=== PATIENT | male | born 1970 | race Caucasian/White ===

== ENCOUNTER 2023-07-17 20:09 | Inpatient (IN) | payer MEDICAID, SELFPAY ==
[2023-07-17 20:10] VITALS: BP 137/87; PULSE 88; RESP 16; TEMP 36.4; O2SAT 95; BMI 30.7
[2023-07-17 20:13] VITALS: BP 137/87; PULSE 89; RESP 16; TEMP 36.4; O2SAT 94
--- NOTE | 2023-07-17 21:56 | CT_ITS ---
We are attempting to reach an attending provider to discuss findings. An addendum with communication details will be sent when the communication is complete. STUDY: CT ABDOMEN AND PELVIS WITH CONTRAST - URINARY TRACT REASON FOR EXAM: Male, 53 years old. ventral hernia, sv pain, nausea RADIATION DOSAGE (If Supplied By Facility): CTDIvol = ( 22.03 ) mGy, DLP = ( 1307.83 ) mGycm TECHNIQUE: IV 100mL Isovue-370 was administered. Transaxial images were obtained from the dome of the diaphragm to the symphysis pubis in the arterial, nephrographic and excretory phases. Multiplanar coronal and sagittal images were reformatted. The protocol utilizes one or more of the following dose reduction techniques: automated exposure control, adjustment of mA and/or kV according to patient size,and/or use of iterative reconstruction technique. COMPARISON: No relevant prior comparison study available FINDINGS: The visualized lung bases are unremarkable. The visualized portions of the heart are within normal limits. Normal liver. There is a solitary gallstone. Normal spleen. Normal pancreas. Normal bilateral adrenal glands. Normal visualized stomach. There are dilated loops of the small intestine with transition at the umbilical hernia and a non-distended colon consistent with a small bowel obstruction. Normal colon. The appendix is visualized and appears normal. Normal abdominal aorta. No retroperitoneal adenopathy. Bilateral kidney stones, the largest measures 5 mm. There is no hydronephrosis. Bilateral renal cysts, the largest measures 3.2 cm . Normal urinary bladder. 14 cm umbilical hernia that is probably incarcerated containing small bowel loops. Normal osseous structures. CT/Abdomen/Pelvis W IV Cont ONLY IMPRESSION: 14 cm umbilical hernia that is probably incarcerated containing small bowel loops. There are dilated loops of the small intestine with transition at the umbilical hernia and a non-distended colon consistent with a small bowel Electronically Signed: Sho Rincon MD at 23:39 EDT ,
--- NOTE | 2023-07-17 21:57 | ED.VIS.GI ---
HPI HPI - GI History of Present Illness Chief Complaint: Abd Pain Informant: patient Abdominal Pain/Flank Pain Onset: Hours (5-6) Context: Sudden Onset (Getting up from sitting position) Timing: Continuous Quality: Aching Location: - (Periumbilical area, site of known ventral hernia) Current Severity: Severe Maximum Severity: Severe Worsened by: Car ride Relieved by: Nothing Nausea/Vomiting/Emesis GI Symptom: Positive for Nausea; Negative for Vomiting Diarrhea/Melena/Hematochezia GI Symptom: Negative for Diarrhea, Melena or Hematochezia Associated Symptoms Associated Symptoms: Negative for Dysuria, Frequency or Hematuria Narrative Narrative: 53-year-old male states he has known about large ventral hernia for about a year or so, has an appointment with his surgeon here tomorrow, but today the pain in this area became severely worse. He states that he has done this in the past but not very often. It started today after he got up. He has been nauseated since but no vomiting. Has not had a bowel movement, feels like he needs to do but cannot. Feels bloated as well. The bloating is making his abdomen distended and making it hard to take a breath although he denies any chest symptoms other than that. No problems urinating. History of appendectomy no other abdominal surgeries. [facility] Medical History (Updated 07/17/23 @ 23:[address] Yoan Liang MD) Substance abuse Chronic hepatitis C HTN (hypertension) GERD (gastroesophageal reflux disease) Home Medications ?Medication ?Instructions ?Recorded ?Last Taken ?Type NK 07/17/23 Unknown History Allergy/AdvReac Type Severity Reaction Status Date / Time No Known Allergies Allergy Verified 07/17/23 20:13 Surgical History (Updated 07/17/23 @ 22:[address] Yoan Liang MD) History of foot surgery History of appendectomy Social History Smoking Status: Current every day smoker tobacco type: cigarettes ROS ROS ED Constitutional Constitutional ED: Denies chills or fever(s) Eyes Eyes: Denies change in vision or diplopia ENT ENT ED: Denies rhinorrhea or sore throat Cardiovascular Cardiovascular: Denies chest pain or palpitations Respiratory/Chest Respiratory/Chest: Denies cough or dyspnea Gastrointestinal Gastrointestinal: Reports abdominal pain and nausea; Denies diarrhea or vomiting Genitourinary Genitourinary ED: Denies dysuria or hematuria Musculoskeletal Musculoskeletal: Denies back pain or neck pain Integumentary Denies abscess or rash Neurologic Neurologic: Denies headache(s), paresthesias or weakness Psychiatric Psychiatric: Denies anxiety or suicidal thoughts EXAM Physical Exam Const Vital Signs: 07/17/23 20:10 07/17/23 20:13 07/18/23 00:00 Temperature 97.6 F L 97.6 F L Temperature Source Temporal Temporal Pulse Rate 88 89 86 Respiratory Rate 16 16 16 Blood Pressure 137/87 H 137/87 H 120/77 Blood Pressure Mean 103 103 91 Pulse Ox 95 94 90 Oxygen Delivery Method Room Air Room Air Room Air 07/18/23 00:40 Temperature 98.1 F Temperature Source Pulse Rate 86 Respiratory Rate 16 Blood Pressure 120/77 Blood Pressure Mean 91 Pulse Ox 90 Oxygen Delivery Method Positive well nourished and well developed General Appearance ED: well developed and NAD HEENT Reports moist mucous membranes normocephalic and atraumatic Eyes PERRL and EOMs intact bilaterally Neck full ROM and supple Resp normal respiratory effort and clear to auscultation bilaterally Cardio regular rate, regular rhythm and no murmurs GI GI Narrative: Normal bowel sounds present but hypoactive. Tender periumbilical area, palpable hernia, large ventral umbilical not able to reduce but it feels soft and not firm. There is rebound tenderness remotely. The rest of the abdomen is soft and benign. Couple scabbed sores in the periumbilical area but no overt erythema or other discoloration of the skin overlying the tender areas. Auscultation: hypoactive bowel sounds Palpation: soft Back/Spine no CVA tenderness General Back: other FROM Extremity normal to inspection General Extremety ED: Negative for edema, pulses abnormal or tenderness General Extremity: Negative for edema or pulses abnormal Neuro oriented x3, CN's II-XII intact bilaterally and no sensory deficits noted Sensorium / Orientation: awake and alert Motor Exam: strength 5/5 throughout Skin no rashes or lesions noted and no wounds MDM MDM MDM Narrative Medical decision making narrative: Patient is quite tender and has some rebound tenderness throughout his abdomen, concern is for incarcerated hernia. CT with IV contrast obtained, I reviewed the images and the result which I agree with, it is consistent with small bowel obstruction due to an incarcerated ventral hernia. His lactate is within normal limits, arguing against necrosis. There is no bowel wall air seen. He has a mild leukocytosis and the rest of his labs are noted. He was initially given IV fluids, morphine, Zofran, it really has not helped very much. Discussed with Dr. Coats with surgery. NG tube requested, but later decided to hold off. Lab Data Attestation: I reviewed the patient's lab results. Labs: Laboratory Results - last 24 hr 07/17/23 22:25 WBC 11.6 H RBC 5.13 Hgb 15.0 Hct 47.5 MCV 92.6 MCH 29.2 MCHC 31.6 L RDW Std Deviation 47.9 H RDW Coeff of Nuno 14.2 Plt Count 396 MPV 9.4 Immature Gran % (Auto) 0.300 Neut % (Auto) 79.8 H Lymph % (Auto) 13.5 L [place] % (Auto) 5.5 Eos % (Auto) 0.6 Baso % (Auto) 0.3 Absolute Neuts (auto) 9.2 H Absolute Lymphs (auto) 1.56 Nucleated RBC % 0 Sodium 134 L Potassium 4.1 Chloride 103 Carbon Dioxide 25.0 Anion Gap 6 BUN 8 Creatinine 0.97 Estim Creat Clear Calc 106.00 Est GFR (MDRD) Af Amer 105 Est GFR (MDRD) Non-Af 86 BUN/Creatinine Ratio 8.3 L Glucose 125 H Lactic Acid 0.9 Calcium 9.6 Radiography Diagnostic Testing: Clinical Impression(s) from Imaging Studies Abdomen/Pelvis CT 07/17/23 21:56 IMPRESSION: 14 cm umbilical hernia that is probably incarcerated containing small bowel loops. There are dilated loops of the small intestine with transition at the umbilical hernia and a non-distended colon consistent with a small bowel Electronically Signed: Sho Rincon MD at 23:39 EDT , ADDENDUM: 07/17/23 [id number] IMPRESSION: 14 cm umbilical hernia that is probably incarcerated containing small bowel loops. There are dilated loops of the small intestine with transition at the umbilical hernia and a non-distended colon consistent with a small bowel N.B. : The above Results were Read Back by Sho Rincon MD to Yoan Liang MD, and understanding confirmed on 07/17/2023 23:46:58 (ET). Electronically Signed: Sho Rincon MD at 23:39 EDT , Management Discussion w/another healthcare provider: Drying Machine Tender ([facility] surgery) and Radiologist Discharge Plan Dx/Rx/DC Orders Clinical Impression: Umbilical hernia with obstruction Disposition Disposition: Acute Care Hospital [facility] Discharge Date/Time: 07/18/23 01:11
[2023-07-17] MEDS: Morphine 4 MG/ML Syringe IV (22:24)
[2023-07-17] MEDS: Ondansetron 4 MG/2 ML Vial IV (22:24)
[2023-07-17] MEDS: 0.9% Normal Saline (1000mL) 1,000 ML 999 ML IV (22:24)
[2023-07-17 22:36] LABS: Absolute Lymphocyte Count 1.56 X10^3/uL (0.83-4.51); Absolute Neutrophil Count 9.2 X10^3/uL (2.0-7.7); Basophil# 0.03 X10^3/uL; Basophil% 0.3 % (0-1); Eosinophil# 0.07 X10^3/uL; Eosinophils% 0.6 % (0-5); Hematocrit 47.5 % (40-54); Lymphocyte # 1.56 X10^3/ul (0.83-4.51); Lymphocyte % 13.5 % (19-41); Mean Corp Hgb Conc 31.6 g/dL (32-36); Mean Corpuscular Hgb 29.2 pg (27.0-32.0); Mean Corpuscular Volume 92.6 fL (80-94); Mean Platelet Vol. 9.4 fl (6.2-12.0); Monocyte# 0.64 X10^3/uL; Monocyte% 5.5 % (0-10); NRBC Flagged by Analyzer 0 % (0-5); Neutrophil # 9.24 X10^3/uL (2.7-7.7); Neutrophil % 79.8 % (47-70); Platelet Count 396 K/mm3 (150-450); RBC Distribution Width CV 14.2 % (11.6-14.6); RBC Distribution Width SD 47.9 fl (35.1-43.9); Red Blood Count 5.13 M/mm3 (4.6-6.2); White Blood Count 11.6 K/mm3 (4.4-11.0)
[2023-07-17 22:46] LABS: Anion Gap 6 (5-15); BUN 8 mg/dL (7-18); BUN/Creat Ratio 8.3 RATIO (10-20); Calcium,Total 9.6 mg/dL (8.5-10.1); Chloride 103 mmol/L (98-107); Creatinine, Serum 0.97 mg/dL (0.70-1.30); EST Glomerular Filtration Rate 86 mL/min (>60); Est Glom Filt Rate - Afr Amer 105 mL/min (>60); Glucose 125 mg/dL (74-106); Potassium 4.1 mmol/L (3.5-5.1); Sodium Level 134 mmol/L (136-145)
[2023-07-17 23:20] LABS: Lactic Acid 0.9 mmol/L (0.4-1.9)
[2023-07-18] VITALS (15 sets, daily range): BP systolic 106–146; BP diastolic 64–86; PULSE 65–86; RESP 16–18; TEMP 36–36.9; O2SAT 90–98; BMI 33.3
[2023-07-18] MEDS: Morphine 4 MG/ML Syringe IV (00:26)
--- NOTE | 2023-07-18 01:00 | PCM.HP.STD ---
HPI - General General Date of Admission: 07/18/23 HPI Narrative LAMONT IJMENEZ, is a 53 M who presents to [facility] with acute exacerbation of umbilical hernia?related discomfort beginning approximately 3 PM this afternoon. He shares that he was assisting his daughter with a plumbing project and repeatedly tried to tighten a connection when he felt sudden onset abdominal discomfort and some nausea with hardening of the hernia area. He is known to me from a initial evaluation of this hernia in May 2022. We had tentatively plan to proceed with a hernia repair following double endoscopy when patient was incarcerated. He was recently laid out and seen in our clinic on 06/27/2023 to reestablish following. At that time he was set up for a CT scan of the abdomen pelvis that was actually due for later today. Patient's ED evaluation notable for leukocytosis of 11.6 with left shift. Lactic acid level was obtained and was within normal limits. CT imaging of the abdomen pelvis was obtained and showed evidence of multiple small bowel loops within patient's umbilical hernia and signs of a transition point related to a small bowel obstruction. Radiology read this as concerning for incarcerated umbilical hernia with small bowel obstruction. Patient's past surgical history is inclusive for laparoscopic appendectomy. [facility] Medical History (Updated 07/17/23 @ 23:[address] Yoan Liang MD) Substance abuse Chronic hepatitis C HTN (hypertension) GERD (gastroesophageal reflux disease) Home Medications ?Medication ?Instructions ?Recorded ?Last Taken ?Type NK 07/17/23 Unknown History Allergy/AdvReac Type Severity Reaction Status Date / Time No Known Allergies Allergy Verified 07/17/23 20:13 Surgical History (Updated 07/17/23 @ 22:[address] Yoan Liang MD) History of foot surgery History of appendectomy Social History Smoking Status: Current every day smoker tobacco type: cigarettes ROS Gastrointestinal Gastrointestinal: Reports abdominal pain, dyspepsia and nausea Genitourinary Genitourinary: Reports oliguria Vital Signs Vital Signs Vital Signs: 07/17/23 20:10 07/17/23 20:13 Temperature 97.6 F L 97.6 F L Temperature Source Temporal Temporal Pulse Rate 88 89 Respiratory Rate 16 16 Blood Pressure 137/87 H 137/87 H Blood Pressure Mean 103 103 Pulse Ox 95 94 Oxygen Delivery Method Room Air Room Air Weight Weight: 220 lb Body Mass Index (BMI) 30.7 Physical Exam Const alert and oriented x3 Constitutional Narrative: Patient in mild distress from discomfort and nausea/heartburn Resp normal respiratory effort GI GI Narrative: Mildly distended, protuberant hernia contents are soft with palpation but tender, improved appearance of superficial periumbilical wound primarily to the left of the umbilicus, no distinct color change to the overlying skin, remainder the abdomen is soft Results Lab / Micro Data 07/17/23 22:25 07/17/23 22:25 Labs: Laboratory Results - last 24 hr 07/17/23 22:25: WBC 11.6 H, RBC 5.13, Hgb 15.0, Hct 47.5, MCV 92.6, MCH 29.2, MCHC 31.6 L, RDW Std Deviation 47.9 H, RDW Coeff of Nuno 14.2, Plt Count 396, MPV 9.4, Immature Gran % (Auto) 0.300, Neut % (Auto) 79.8 H, Lymph % (Auto) 13.5 L, [place] % (Auto) 5.5, Eos % (Auto) 0.6, Baso % (Auto) 0.3, Absolute Neuts (auto) 9.2 H, Absolute Lymphs (auto) 1.56, Nucleated RBC % 0, Sodium 134 L, Potassium 4.1, Chloride 103, Carbon Dioxide 25.0, Anion Gap 6, BUN 8, Creatinine 0.97, Estim Creat Clear Calc 106.00, Est GFR (MDRD) Af Amer 105, Est GFR (MDRD) Non-Af 86, BUN/Creatinine Ratio 8.3 L, Glucose 125 H, Lactic Acid 0.9, Calcium 9.6 Imaging Radiology Impression Abdomen/Pelvis CT 07/17/23 21:56 IMPRESSION: 14 cm umbilical hernia that is probably incarcerated containing small bowel loops. There are dilated loops of the small intestine with transition at the umbilical hernia and a non-distended colon consistent with a small bowel Electronically Signed: Sho Rincon MD at 23:39 EDT , ADDENDUM: 07/17/23 [id number] IMPRESSION: 14 cm umbilical hernia that is probably incarcerated containing small bowel loops. There are dilated loops of the small intestine with transition at the umbilical hernia and a non-distended colon consistent with a small bowel N.B. : The above Results were Read Back by Sho Rincon MD to Yoan Liang MD, and understanding confirmed on 07/17/2023 23:46:58 (ET). Electronically Signed: Sho Rincon MD at 23:39 EDT Reading Location ID and State: [facility] / [place] Tel , Service support , Assessment & Plan Assessment/Plan (1) Umbilical hernia with obstruction: PLAN: Patient is a 53-year-old male, known to me from prior consultation visits for this hernia dating back to May 2022, who presents for emergent evaluation given acute exacerbation of his hernia?related pain as well as some obstructive symptomology. Indeed, ER workup is consistent with a diagnosis of incarcerated umbilical hernia and small bowel obstruction with transition point within the hernia sac. On exam I found evidence of an incarcerated umbilical hernia but no evidence of bowel strangulation and was reassured by patient's normal lactic acid as well as soft hernia contents. Thus, patient was counseled that we would attempt bedside reduction of his hernia in the name of trying to alleviate his obstruction and need for emergent OR?thereby hopefully making it possible that he would be a candidate for a laparoscopic assisted approach to his umbilical hernia repair with mesh placement. Patient acknowledged understanding and an extended attempt at reduction was made. Ultimately this attempt was successful in complete reduction of the hernia contents to the peritoneum and I was able to palpate the fascial defect. Patient confirmed that he felt symptomatically improved but did complain of some persistent heartburn symptoms. But this successful reduction plan to admit patient to the floor with n.p.o. status and monitor for signs of return of bowel function. Also repeat his laboratories. It is my hope that this will allow his bowel to return to more normal caliber and allow us to establish some working room to make a laparoscopic?assisted approach a viable option for Mr. Ross. Ultimately I would like to plan for laparoscopic investigation of his bowel with possible open closure of his hernia defect followed by laparoscopic placement of mesh. Patient should be consented appropriately and he has been added to the operating room schedule for later today. ? Continue n.p.o. status ? IV PPI ? IV pain medication and antiemetics ? Consent patient for hybrid approach to umbilical hernia repair with mesh Charges/Coding Visit Charges Inpatient E&M: 09784 Init Hosp L2
--- NOTE | 2023-07-18 01:12 | ED.RN ---
Per Dr Coats- cancel NG insertion due to risk of patient retching and hernia coming back out.
[2023-07-18] MEDS: 0.9% Normal Saline (1000mL) 1,000 ML 125 ML IV ×3 (01:45→20:20)
[2023-07-18] MEDS: HYDROmorphone 0.5 MG/0.5 ML SYRINGE IV ×3 (01:51→20:49)
--- NOTE | 2023-07-18 05:55 | EKG12_ITS ---
Test Reason : PRE-OP Blood Pressure : / mmHG Vent. Rate : 076 BPM Atrial Rate : 076 BPM P-R Int : 168 ms QRS Dur : 088 ms QT Int : 406 ms P-R-T Axes : 032 041 048 degrees QTc Int : 456 ms Normal sinus rhythm Normal ECG No previous ECGs available Confirmed by Alexander Huitron ([id number]), international editorial producer CAROLINE ZIEGLER ([id number]) on 07/18/2023 10:21:30 AM Referred By: Confirmed By:Alexander Huitron
[2023-07-18 06:42] LABS: Absolute Lymphocyte Count 1.81 X10^3/uL (0.83-4.51); Absolute Neutrophil Count 6.2 X10^3/uL (2.0-7.7); Basophil# 0.02 X10^3/uL; Basophil% 0.2 % (0-1); Eosinophils% 2.3 % (0-5); Hematocrit 39.9 % (40-54); Hemoglobin 12.5 g/dL (13.0-16.5); Lymphocyte # 1.81 X10^3/ul (0.83-4.51); Lymphocyte % 20.5 % (19-41); Mean Corp Hgb Conc 31.3 g/dL (32-36); Mean Corpuscular Hgb 29.3 pg (27.0-32.0); Mean Corpuscular Volume 93.7 fL (80-94); Mean Platelet Vol. 9.4 fl (6.2-12.0); Monocyte# 0.57 X10^3/uL; Monocyte% 6.5 % (0-10); NRBC Flagged by Analyzer 0 % (0-5); Neutrophil # 6.19 X10^3/uL (2.7-7.7); Neutrophil % 70.2 % (47-70); Platelet Count 310 K/mm3 (150-450); RBC Distribution Width CV 14.4 % (11.6-14.6); RBC Distribution Width SD 49.2 fl (35.1-43.9); Red Blood Count 4.26 M/mm3 (4.6-6.2); White Blood Count 8.8 K/mm3 (4.4-11.0)
--- NOTE | 2023-07-18 07:00 | RAD_ITS ---
STUDY: CT ABDOMEN AND PELVIS WITH CONTRAST REASON FOR EXAM: Male, 53 years old. Umbilical hernia repair. Prior appendectomy. RADIATION DOSAGE (If Supplied By Facility): CTDIvol = ( 16.67 ) mGy, DLP = ( 1358.60 ) mGycm TECHNIQUE: Transaxial images were obtained from the dome of the diaphragm to the symphysis pubis without oral contrast. IV 100mL Isovue-300 was administered. Sagittal and coronal images were reconstructed. Individualized dose optimization techniques were used for this CT. COMPARISON: Comparison is made with prior study dated July 17, 2023. FINDINGS: Stable appearance of the lung bases suggestive of scarring with areas of linear density and groundglass appearance. Coronary artery calcification. Normal liver. The gallbladder is contracted. There is a 2 cm solitary gallstone in the gallbladder lumen. There are multiple benign calcified granulomata of the spleen. Normal pancreas. Normal bilateral adrenal glands. Stable 3.4 cm right renal cyst. Stable nonobstructive bilateral intrarenal calculi. Normal visualized stomach. Normal small intestine. Normal colon. The appendix is visualized and appears normal. There is scattered atherosclerotic calcification of the abdominal aorta, without a demonstrated aneurysm. Normal inferior vena cava. Normal retroperitoneum. Normal urinary bladder. There is evidence of a soft tissue changes deep to the umbilicus in keeping with postoperative scarring following umbilical hernia repair. No evidence of recurrent hernia. There are degenerative changes of the visualized lumbar spine. RAD/Abdomen Single View (Portable) IMPRESSION: Status post umbilical hernia repair with postoperative scarring. The remainder of the examination is unchanged. Small bilateral nonobstructive intrarenal calculi and right renal cyst. Solitary gallstone. Electronically Signed: Genaro Blunt MD at 8:42 EDT ,
[2023-07-18 07:08] LABS: Lactic Acid 0.7 mmol/L (0.4-1.9)
[2023-07-18 07:09] LABS: Anion Gap 6 (5-15); BUN 7 mg/dL (7-18); BUN/Creat Ratio 9.7 RATIO (10-20); Calcium,Total 8.4 mg/dL (8.5-10.1); Chloride 108 mmol/L (98-107); Creatinine, Serum 0.72 mg/dL (0.70-1.30); EST Glomerular Filtration Rate 122 mL/min (>60); Est Glom Filt Rate - Afr Amer 147 mL/min (>60); Estimated Creatinine Clearance 148.73 ml/min; Glucose 130 mg/dL (74-106); Magnesium 2.1 mg/dL (1.6-2.6); Phosphorus 3.2 mg/dL (2.5-4.9); Potassium 3.8 mmol/L (3.5-5.1); Sodium Level 137 mmol/L (136-145)
--- NOTE | 2023-07-18 07:58 | PCM.PN.SRG ---
Subjective Subjective Patient seen and examined during AM rounds. He reports that he is feeling overall better from an abdominal standpoint and yet not back to normal. He does report an improvement in his acid reflux symptoms as well. He denies any bowel movements. He also denies any urination since his admission. Objective Data Objective Data Vital Signs: Vital Signs Temp Pulse Resp BP Pulse Ox O2 Del Method O2 Flow Rate 96.8 F L 78 16 124/76 H 94 Nasal Cannula 2 07/18/23 05:00 07/18/23 05:00 07/18/23 05:00 07/18/23 05:00 07/18/23 05:00 07/18/23 05:00 07/18/23 05:00 Oxygen Flow Rate (L/min) 2 Oxygen Delivery Method Nasal Cannula Weight: 239 lb 6.752 oz Body Mass Index (BMI) 33.3 Intake & Output: Intake and Output for Last 24 Hours 07/16/23 07/17/23 07/18/23 23:59 23:59 23:59 Intake Total 1000 / 1000 0 / 0 Output Total 0 / 0 Balance 1000 / 1000 0 / 0 Lab / Micro Data 07/18/23 06:19 07/18/23 06:19 Labs: Laboratory Results - last 24 hr 07/17/23 22:25: WBC 11.6 H, RBC 5.13, Hgb 15.0, Hct 47.5, MCV 92.6, MCH 29.2, MCHC 31.6 L, RDW Std Deviation 47.9 H, RDW Coeff of Nuno 14.2, Plt Count 396, MPV 9.4, Immature Gran % (Auto) 0.300, Neut % (Auto) 79.8 H, Lymph % (Auto) 13.5 L, [place] % (Auto) 5.5, Eos % (Auto) 0.6, Baso % (Auto) 0.3, Absolute Neuts (auto) 9.2 H, Absolute Lymphs (auto) 1.56, Nucleated RBC % 0, Sodium 134 L, Potassium 4.1, Chloride 103, Carbon Dioxide 25.0, Anion Gap 6, BUN 8, Creatinine 0.97, Estim Creat Clear Calc 106.00, Est GFR (MDRD) Af Amer 105, Est GFR (MDRD) Non-Af 86, BUN/Creatinine Ratio 8.3 L, Glucose 125 H, Lactic Acid 0.9, Calcium 9.6 07/18/23 06:19: WBC 8.8, RBC 4.26 L, Hgb 12.5 L, Hct 39.9 L, MCV 93.7, MCH 29.3, MCHC 31.3 L, RDW Std Deviation 49.2 H, RDW Coeff of Nuno 14.4, Plt Count 310, MPV 9.4, Immature Gran % (Auto) 0.300, Neut % (Auto) 70.2 H, Lymph % (Auto) 20.5, [place] % (Auto) 6.5, Eos % (Auto) 2.3, Baso % (Auto) 0.2, Absolute Neuts (auto) 6.2, Absolute Lymphs (auto) 1.81, Nucleated RBC % 0, Sodium 137, Potassium 3.8, Chloride 108 H, Carbon Dioxide 23.0, Anion Gap 6, BUN 7, Creatinine 0.72, Estim Creat Clear Calc 148.73, Est GFR (MDRD) Af Amer 147, Est GFR (MDRD) Non-Af 122, BUN/Creatinine Ratio 9.7 L, Glucose 130 H, Lactic Acid 0.7, Calcium 8.4 L, Phosphorus 3.2, Magnesium 2.1 Radiography Diagnostic Testing: Radiology Impression Abdomen/Pelvis CT 07/17/23 21:56 IMPRESSION: 14 cm umbilical hernia that is probably incarcerated containing small bowel loops. There are dilated loops of the small intestine with transition at the umbilical hernia and a non-distended colon consistent with a small bowel Electronically Signed: Sho Rincon MD at 23:39 EDT , ADDENDUM: 07/17/23 6554 IMPRESSION: 14 cm umbilical hernia that is probably incarcerated containing small bowel loops. There are dilated loops of the small intestine with transition at the umbilical hernia and a non-distended colon consistent with a small bowel N.B. : The above Results were Read Back by Sho Rincon MD to Yoan Liang MD, and understanding confirmed on 07/17/2023 23:46:58 (ET). Electronically Signed: Sho Rincon MD at 23:39 EDT Reading Location ID and State: [facility] / [place] Tel , Service support , Physical Exam Const oriented x3 and no apparent distress Resp normal respiratory effort GI GI Narrative: Minimally distended, soft, minimally tender, hernia contents are returned but are soft and reducible to the primary defect Assessment & Plan Assessment/Plan (1) Umbilical hernia with obstruction: PLAN: Patient is a 53-year-old male, known to me from prior consultation visits for this hernia dating back to May 2022, who presents for emergent evaluation given acute exacerbation of his hernia?related pain as well as some obstructive symptomology. Indeed, ER workup is consistent with a diagnosis of incarcerated umbilical hernia and small bowel obstruction with transition point within the hernia sac. He is status post hernia reduction in the ER and pending operative repair today. I will plan to perform a diagnostic laparoscopy before proceeding with a hybrid umbilical hernia repair with mesh placement. Consents were confirmed. Regarding patient's urinary situation nursing was instructed to perform a straight catheterization for any volume greater than 350 mL. Also started patient on 0.4 mg tamsulosin. Charges/Coding Visit Charges Inpatient E&M: 84440 Subs Hosp L2
--- NOTE | 2023-07-18 08:00 | HERN_PTH ---
PATIENT: LAMONT JIMENEZ LOC: [facility]3 U#:[id number] AGE/SX: 53/M ROOM: MA315 RE07/18/[address]: Dr. Alexander Coats MD : 1970 BED: 1 DIS: 07/21/2023 SPEC #: [id number] RECD: 07/19/23 07:40 STATUS: NELSON BETANCOURT #: [id number] FLORA: 07/18/23 08:[address]: Alexander Coats DEPT: SURGICAL PATHOLOGY RECD BY: Zulema Croft ENTERED: 07/19/23 10:57 SP TYPE: Hernia OTHR DR: Dr. Elodia Vargas MD Tissues: HERNIA Procedures: Surgery Specimen Level II HEADER OPERATION: Hybrid umbilical hernia repair, open laparoscopic, mesh PRE-OP DIAGNOSIS: Umbilical hernia with obstruction TISSUE SUBMITTED: Umbilical hernia sac MICROSCOPIC DIAGNOSIS Umbilical hernia sac: Pieces of fibroadipose and fibroconnective tissue, consistent with hernia sac. SJ/mr 07/20/2023 MICROSCOPIC DESCRIPTION Slides are reviewed. GROSS DESCRIPTION Received in fixative is one container labeled with the patient's name and designated Umbilical hernia sac. The specimen consists of two pieces of pink-lamb congested soft tissue measuring in aggregate 10.0 x 9.0 x 3.0cm. Section do not reveal any mass lesions. Lean Specialist sections are submitted in one cassette. / 07/19/2023 TC:5 CPT:44913
--- NOTE | 2023-07-18 10:50 | CASEMGMT ---
RN CM Face to Face with patient for initial transition planning/care coordination assessment. RN CM introduced self and role at [facility]. Patient lying in bed, alert and oriented. Patient willing to participate in assessment and is able to answer all questions appropriately. Care providers, pharmacy, and demographics verified. PCP: Alicia Specialists: none Preferred Pharmacy: [facility] Insurance: [employer]EE Prescription Benefit: yes Living Will/HPOA: none LNOK: no family list, patient declined to list emergency contact Living Arrangements: Patient lives with a friend in a single story home with 3 steps and railing to enter the home. Patient states he is independent at home. Transportation: friend DME/HHC: Patient denies DME in the home. No previous HHC. Patient has been to [facility] in the past. Patient wishes to discharge home, denies need for home health at this time. Patient states he has no further needs or concerns at this time. CM to follow for discharge planning needs that may arise. Disposition Plan: Patient to discharge home with family support and follow-up plans in place. Tammei MOSHER, RN, CM
--- NOTE | 2023-07-18 11:34 | CASEMGMT ---
SW met with patient as he triggered for SDOH concerns, utilities, food, and transportation. SW introduced self and role at [facility]. Patient denied needing any resources regarding utilities, food, and transportation. Aarti Ashford MSW NASREEN
--- NOTE | 2023-07-18 12:52 | CASEMGMT ---
Patient does not have a Healthcare Power of Live Out Nanny or Healthcare Living Will. Per admission questions patient is not interested in documents. Aarti DOWNEY
[2023-07-18] MEDS: 0.9% Saline Lock 10 ML Syringe IV ×2 (13:28→20:20)
[2023-07-18] MEDS: Cefazolin 2 GM in 0.9% Normal Saline (100mL Bag) 100 ML IV (14:52)
[2023-07-18] MEDS: BUPIVACAINE LIPOSOME/PF 20 ML VIAL OPERA.SITE (15:14)
[2023-07-18] MEDS: Bupivacaine 0.25% 30 ML Vial (15:14)
[2023-07-18] MEDS: 0.9% Normal Saline (Pres. free 10 ML Vial (15:14)
[2023-07-18] MEDS: Lactated Ringers 1,000 ML 15 ML IV (15:37)
[2023-07-18 16:32] LABS: International Normalized Ratio 1.1; Prothrombin Time (Protime)PT. 13.8 SECONDS (11.7-14.9)
--- NOTE | 2023-07-18 18:39 | PCM.OPRPT ---
Report of Operation Date of Procedure: 07/18/23 Pre-Operative Diagnosis: Recently incarcerated umbilical hernia with obstruction Post-Operative Diagnosis: Same Surgery/Procedure Performed:: 1. Hybrid open/lap?assisted umbilical hernia repair with mesh placement 2. Transversus abdominis plane block Description of Surgical Findings:: ? Large hernia sac containing a very short segment of chronically incarcerated small bowel that was reducible but adherent within the hernia sac (this bowel turned out to me along to the ileum during formal evaluation of the bowel) ? All bowel appeared viable but distended and there were some injected lacteals beyond the area of patient's prior obstructive bowel ? Attenuated abdominal wall Surgeon: Alexander Coats commercial counsel: Nicolle Stevenson commercial counsel: Gisselle Jordan Type of Anesthesia: General/Supplemental Anesthesiologist: Aftab Heart Specimen's removed: Hernia sac Drains: None Estimated Blood Loss (mL): 15 Description of Procedure: After appropriate identification in the preoperative holding area patient was brought to the operating room where he was positioned supine on the operating room table. Preoperative antibiotics were being administered during this time. Patient was then induced with a general anesthetic and his abdomen was prepped and draped in usual sterile fashion. A formal timeout was conducted to confirm both patient and the procedure amongst those present. Observing the patient's superficial abrasion to the left lower abdominal wall I elected to use a curvilinear incision along the right side of patient's umbilicus and performed a local block along this tissue using quarter percent Marcaine. This incision was made sharply and deepened down through the dermis and subcu tissue with use of electrocautery. A number of superficial skin bleeders were treated with electrocautery specifically. As I briefly attempted to bluntly encircled patient's hernia sac a rent was made in the site of the hernia sac resulting in spillage of simple ascites from the peritoneal cavity. Recognizing that the size of the hernia sac would preclude this usual approach I opted to amputate the hernia sac from the base of the umbilical skin and then bisect it carefully after ensuring there was no adherent bowel to the inner lining of the sac (which was found along the upper left quadrant of the sac and was taken down with careful sharp dissection to avoid injury to the serosa. Once the sac was bisected it was from the surrounding soft tissue and ultimately amputated at the level of fascia using electrocautery. A small wound protector was placed through this fascial opening and then a balloon 12 mm Berkowitz trocar was placed through this wound protector. A umbilical tape was used snug the wound protector about the trocar in order to establish pneumoperitoneum. Additional 5 mm trocars were placed in the left upper and left lower abdominal quadrants. Then in this configuration a diagnostic laparoscopy was performed to run the bowel from the terminal ileum proximally to the ligament of Treitz. I encountered a roughly 10 cm area of injected small bowel within the region of the ileum that showed slight serosal tears, but otherwise the remaining bowel appeared viable (albeit dilated). After this running of the bowel, the segment of bowel with an injected appearance and superficial serosal tears was grasped with a laparoscopic grasper and delivered through the wound protector. After the bowel was eviscerated the serosal tears were repaired in a Lembert fashion using 3-0 silk suture. The bowel was then returned to the peritoneum after additional inspection. I then closed the hernia defect with evenly spaced #1 Ethibond sutures in a interrupted [id number] fashion. The sutures were left untied so that I could reintroduce a 12 mm trocar through their center. Through this trocar I placed a 11.[address] mesh with echo positioning system into the peritoneal cavity. Then the fascial sutures were tied and the mesh was positioned using the inflatable balloon. Also at this time a new 5 mm port was introduced through the right side of the abdominal wall laterally under laparoscopic visualization. The mesh was tacked to the underside of the abdominal wall using the laparoscopic secure strap tacker. At 1 point in the early part of this tacking the inadvertent injury was made to the right inferior epigastric artery (due to an inability to visualize the vessel given the patient's significant visceral adipose tissue) resulting in some immediate bleeding from that area. However, this bleeding rate dissipated and ultimately stopped with application of manual pressure to the area. Once the mesh was circumferentially tacked to the underlying balloon was desufflated and removed from the underside of the mesh. The mesh was further tacked in the interior and a surveillance pass was made to ensure that it was adequately approximated to the anterior abdominal wall. Then patient's left upper quadrant 5 mm port site was upsized to a 12 mm port site and the balloon contents from the mesh deployment were removed through this opening. This 12 mm port was then removed and the site was closed with a Asa Holm suture passer and #1 PDS suture in a [id number] fashion using laparoscopic direction. A transversus abdominis plane block was performed with 100 mls of the cocktail solution of bupivacaine, Exparel, and injectable saline. Centrally, the skin of the umbilical stalk was tacked down to the fascia with a interrupted 3-0 Vicryl. The space around the patient's hernia sac was gently closed down with placement of a pursestring suture to approximate this tissue around the newly reapproximated umbilical stalk. Lastly, a 4-0 Monocryl was used to close the skin in a running subcuticular technique. Dermabond was used to seal the wounds given the finding of some simple ascites and desire to avoid postoperative leakage. A OpSite dressing was placed atop this and the area around the Telfa roll was evacuated to provide a bit of a compressive dressing. This concluded the formal portion of the case and the patient was allowed to awaken from general anesthetic. An abdominal binder was placed about the patient and he was taken to PACU for ongoing recovery. Grafts/Implants Used: Ventralight ST mesh with echo, reference [id number], lot [id number] Complications None Admit VTE Documentation VTE Mechan Device Prophylaxis: SCD's Procedures Digestive 40xxx-49xxx: 47621 RPR AA HRN 3-10 NCR/STRN
[2023-07-19] MEDS: HYDROmorphone 0.5 MG/0.5 ML SYRINGE IV ×2 (02:50→09:31)
[2023-07-19] MEDS: 0.9% Normal Saline (1000mL) 1,000 ML 125 ML IV ×3 (02:52→19:22)
[2023-07-19 02:58] VITALS: BP 123/74; PULSE 75; RESP 16; TEMP 36.4; O2SAT 95
[2023-07-19 06:18] VITALS: BP 113/74; PULSE 79; RESP 19; TEMP 36.6; O2SAT 93
--- NOTE | 2023-07-19 06:22 | NURSING ---
pt agreed to get up to the chair at this time.
--- NOTE | 2023-07-19 06:29 | PCM.PN.SRG ---
Subjective Subjective Patient seen and examined during AM rounds. He is found resting out of bed in chair. He does state that he is having some breakthrough pain but that overall the pain medication is working. He denies any passage of gas or appetite but does complain of some thirst. He further denies any nausea or belching. Objective Data Objective Data Vital Signs: Vital Signs Temp Pulse Resp BP Pulse Ox O2 Del Method O2 Flow Rate 98 F 79 19 H 113/74 93 Nasal Cannula 2 07/19/23 06:18 07/19/23 06:18 07/19/23 06:18 07/19/23 06:18 07/19/23 06:18 07/19/23 06:18 07/19/23 06:18 Oxygen Flow Rate (L/min) 2 Oxygen Delivery Method Nasal Cannula Weight: 239 lb 6.752 oz Body Mass Index (BMI) 33.3 Intake & Output: Intake and Output for Last 24 Hours 07/17/23 07/18/23 07/19/23 23:59 23:59 23:59 Intake Total 1000 / 1000 2174 / 2174 1096.67 / 1096.67 Output Total 850 / 850 550 / 550 Balance 1000 / 1000 1324 / 1324 546.67 / 546.67 Lab / Micro Data 07/19/23 06:25 07/19/23 06:25 Labs: Laboratory Results - last 24 hr 07/18/23 06:19: WBC 8.8, RBC 4.26 L, Hgb 12.5 L, Hct 39.9 L, MCV 93.7, MCH 29.3, MCHC 31.3 L, RDW Std Deviation 49.2 H, RDW Coeff of Nuno 14.4, Plt Count 310, MPV 9.4, Immature Gran % (Auto) 0.300, Neut % (Auto) 70.2 H, Lymph % (Auto) 20.5, [place] % (Auto) 6.5, Eos % (Auto) 2.3, Baso % (Auto) 0.2, Absolute Neuts (auto) 6.2, Absolute Lymphs (auto) 1.81, Nucleated RBC % 0, Sodium 137, Potassium 3.8, Chloride 108 H, Carbon Dioxide 23.0, Anion Gap 6, BUN 7, Creatinine 0.72, Estim Creat Clear Calc 148.73, Est GFR (MDRD) Af Amer 147, Est GFR (MDRD) Non-Af 122, BUN/Creatinine Ratio 9.7 L, Glucose 130 H, Lactic Acid 0.7, Calcium 8.4 L, Phosphorus 3.2, Magnesium 2.1 07/18/23 15:51: PT 13.8, INR 1.1 Radiography Diagnostic Testing: Radiology Impression KUB X-Ray 07/18/23 07:00 IMPRESSION: Mildly dilated small bowel loops in the upper abdomen. Electronically Signed: Genaro Blunt MD at 8:33 EDT , Physical Exam Const oriented x3 Resp Resp Narrative: Slightly increased respiratory rate with shallow respirations GI GI Narrative: Abdominal binder in place and abdomen is mildly distended. Beneath this patient's operative dressings are clean dry and intact. His abdomen is soft and appropriately tender to palpation about the surgical incisions. Assessment & Plan Assessment/Plan (1) Umbilical hernia with obstruction: PLAN: Patient is a 53-year-old male, known to me from prior consultation visits for this hernia dating back to May 2022, who presents for emergent evaluation given acute exacerbation of his hernia?related pain as well as some obstructive symptomology. Indeed, ER workup is consistent with a diagnosis of incarcerated umbilical hernia and small bowel obstruction with transition point within the hernia sac. He is status post hernia reduction in the ER and postoperative day 1 from hybrid approach to umbilical hernia repair with mesh yesterday. Patient overall recovering as expected. Will try to add some scheduled Toradol for breakthrough discomfort. Also appeared to need to wait for more complete return of bowel function before reinitiating much more of a diet but will plan for clear liquids without carbonation today and monitor for tolerance. Alexander Coats MD General Surgery Endocrine Surgery Pager: [facility] [address] [place] [address], [address] [place] [id number] Office: [phone] Charges/Coding Visit Charges Inpatient E&M: 66888 Subs Hosp L2
[2023-07-19 06:43] LABS: Absolute Lymphocyte Count 1.98 X10^3/uL (0.83-4.51); Absolute Neutrophil Count 8.1 X10^3/uL (2.0-7.7); Basophil# 0.02 X10^3/uL; Basophil% 0.2 % (0-1); Eosinophil# 0.04 X10^3/uL; Eosinophils% 0.4 % (0-5); Hematocrit 42.8 % (40-54); Hemoglobin 13.4 g/dL (13.0-16.5); Lymphocyte # 1.98 X10^3/ul (0.83-4.51); Lymphocyte % 18.3 % (19-41); Mean Corp Hgb Conc 31.3 g/dL (32-36); Mean Corpuscular Hgb 29.8 pg (27.0-32.0); Mean Corpuscular Volume 95.3 fL (80-94); Mean Platelet Vol. 9.4 fl (6.2-12.0); Monocyte# 0.61 X10^3/uL; Monocyte% 5.6 % (0-10); NRBC Flagged by Analyzer 0 % (0-5); Neutrophil # 8.12 X10^3/uL (2.7-7.7); Neutrophil % 74.9 % (47-70); Platelet Count 408 K/mm3 (150-450); RBC Distribution Width CV 14.4 % (11.6-14.6); RBC Distribution Width SD 50.2 fl (35.1-43.9); Red Blood Count 4.49 M/mm3 (4.6-6.2); White Blood Count 10.8 K/mm3 (4.4-11.0)
[2023-07-19 08:44] LABS: Phosphorus 2.3 mg/dL (2.5-4.9)
[2023-07-19 08:45] LABS: Anion Gap 5 (5-15); BUN 7 mg/dL (7-18); BUN/Creat Ratio 8.6 RATIO (10-20); Calcium,Total 8.2 mg/dL (8.5-10.1); Chloride 105 mmol/L (98-107); Creatinine, Serum 0.82 mg/dL (0.70-1.30); EST Glomerular Filtration Rate 105 mL/min (>60); Est Glom Filt Rate - Afr Amer 127 mL/min (>60); Estimated Creatinine Clearance 130.59 ml/min; Glucose 105 mg/dL (74-106); Magnesium 1.9 mg/dL (1.6-2.6); Potassium 3.8 mmol/L (3.5-5.1); Sodium Level 135 mmol/L (136-145)
[2023-07-19] MEDS: Pantoprazole Sodium 40 MG in 0.9% Normal Saline (100mL MB+) 100 ML 330 MG IV (09:28)
[2023-07-19 10:15] VITALS: BP 117/61; PULSE 74; RESP 18; TEMP 36.6; O2SAT 98
[2023-07-19] MEDS: Ketorolac 30 MG/ML Syringe IV ×2 (11:31→17:11)
[2023-07-19] MEDS: Sodium Phosphate/Na Biphos 15 MMOL in 0.9% Normal Saline (250mL Bag) 250 ML 125 MMOL IV (15:14)
[2023-07-19 16:15] VITALS: BP 119/70; PULSE 78; RESP 18; TEMP 36.5; O2SAT 92
[2023-07-19] MEDS: Tamsulosin HCl 0.4 MG Capsule PO (17:10)
[2023-07-19] MEDS: 0.9% Saline Lock 10 ML Syringe IV (17:12)
--- NOTE | 2023-07-19 18:27 | NURSING ---
Report called to NITO Woodson for pt to be transferred to [facility].
--- NOTE | 2023-07-19 18:46 | DCINST_ITS ---
Discharge Instructions Diet Discharge Diet: No restrictions Activity Discharge Activity: May Not Drive (While taking narcotic pain medication) and May Shower Ice area for (Minutes): 20 Lifting Restrictions: No lifting greater than 10 pounds for the next 5 weeks Dressing / Incision Call your doctor if your incision/area has: Continuous Slow Oozing, Increased Pain/ Swelling, Increased Redness, Foul Smelling Discharge and Swelling at the incision site Call your doctor if you observe: Fever of 101 or Higher, Inability to urinate and Inability to have a bowel movement Cleanse incision/area with: Soap & Water and Keep Dressing Clean & Dry Additional Dressing/Incision Instructions:: Please leave Steri-Strips intact until they fall off spontaneously or are taken off at your follow-up visit Follow Up Care Please Follow Up With: Alexander Coats MD When: 1 week postop Test Results: Test results from this visit will be discussed in further detail at your follow- up appointment, if applicable. Discharge Plan Admission Admit Date/Time: 07/18/23 00:51 Primary Reason for Your Visit: Umbilical hernia repair Attending Provider: Alexander Coats Primary Care Provider: Elodia Vargas Discharge Orders/Prescriptions Prescriptions: Continued lisinopril 10 mg tablet 10 mg PO DAILY omeprazole 20 mg capsule,delayed release(DR/EC) 20 mg PO DAILY Referrals / Follow Up: Elodia Vargas MD [Primary Care Provider] - Disposition Disposition (needs filled in before D/C Order can be placed): Home, Self Care
[2023-07-19 19:24] VITALS: BP 129/69; PULSE 81; RESP 18; TEMP 36.6; O2SAT 98
[2023-07-20 00:32] VITALS: BP 128/79; PULSE 92; RESP 18; TEMP 37; O2SAT 97
[2023-07-20] MEDS: Ketorolac 30 MG/ML Syringe IV ×5 (00:36→23:32)
[2023-07-20] MEDS: 0.9% Saline Lock 10 ML Syringe IV ×3 (00:36→17:20)
[2023-07-20] MEDS: 0.9% Normal Saline (1000mL) 1,000 ML 125 ML IV ×3 (03:22→21:32)
[2023-07-20 05:20] VITALS: BP 137/77; PULSE 76; RESP 24; TEMP 36.8; O2SAT 96
--- NOTE | 2023-07-20 05:33 | NURSING ---
encouraged pt to get out of bed and take a walk. pt refusing. educated pt on the benefits of walking and the risks of staying in bed.
[2023-07-20 07:02] LABS: Absolute Lymphocyte Count 1.28 X10^3/uL (0.83-4.51); Absolute Neutrophil Count 4.4 X10^3/uL (2.0-7.7); Basophil# 0.01 X10^3/uL; Basophil% 0.2 % (0-1); Eosinophil# 0.17 X10^3/uL; Eosinophils% 2.6 % (0-5); Hematocrit 36.4 % (40-54); Lymphocyte # 1.28 X10^3/ul (0.83-4.51); Lymphocyte % 19.8 % (19-41); Mean Corpuscular Hgb 30.3 pg (27.0-32.0); Mean Corpuscular Volume 91.9 fL (80-94); Mean Platelet Vol. 9.4 fl (6.2-12.0); Monocyte# 0.54 X10^3/uL; Monocyte% 8.4 % (0-10); NRBC Flagged by Analyzer 0 % (0-5); Neutrophil # 4.43 X10^3/uL (2.7-7.7); Neutrophil % 68.5 % (47-70); Platelet Count 218 K/mm3 (150-450); RBC Distribution Width CV 14.5 % (11.6-14.6); RBC Distribution Width SD 49.1 fl (35.1-43.9); Red Blood Count 3.96 M/mm3 (4.6-6.2); White Blood Count 6.5 K/mm3 (4.4-11.0)
--- NOTE | 2023-07-20 07:35 | RAD_ITS ---
STUDY: X-RAY - ABDOMEN/PELVIS REASON FOR EXAM: Male, 53 years old. Abdominal pain and distention TECHNIQUE: 3 AP views COMPARISON: 07/18/2023 FINDINGS: Normal visualized lung bases. There is a paralytic ileus of the small intestine with mild gaseous distention. There is no demonstrated free abdominal air. The visualized liver, spleen and kidneys are grossly normal in size and morphology. Normal soft tissue structures. There are diffuse degenerative changes of the visualized lumbar spine. RAD/Abdomen Single View (Portable) IMPRESSION: Persistent ileus, no interval change since the previous study. Electronically Signed: John Jiménez MD at 8:31 EDT ,
--- NOTE | 2023-07-20 08:01 | PN.SURG_ITS ---
Subjective Subjective Patient seen and examined during AM rounds. Is found resting in bed. He appears somewhat lethargic and has not gotten out of bed. He denies a appetite. He denies any passage of flatus. He also denies any nausea presently. He does confirm that he has been belching. Objective Data Objective Data Vital Signs: Vital Signs Temp Pulse Resp BP Pulse Ox O2 Del Method O2 Flow Rate 98.3 F 76 24 H 137/77 H 96 Nasal Cannula 2 07/20/23 05:20 07/20/23 05:20 07/20/23 05:20 07/20/23 05:20 07/20/23 05:20 07/20/23 05:35 07/20/23 05:35 Oxygen Flow Rate (L/min) 2 Oxygen Delivery Method Nasal Cannula Weight: 239 lb 6.752 oz Body Mass Index (BMI) 33.3 Intake & Output: Intake and Output for Last 24 Hours 07/18/23 07/19/23 07/20/23 23:59 23:59 23:59 Intake Total 2174 / 2174 3491.25 / 3491.25 1100 / 1100 Output Total 850 / 850 1250 / 1250 200 / 200 Balance 1324 / 1324 2241.25 / 2241.25 900 / 900 Lab / Micro Data 07/20/23 06:31 07/20/23 06:31 Labs: Laboratory Results - last 24 hr 07/19/23 06:25: Sodium 135 L, Potassium 3.8, Chloride 105, Carbon Dioxide 25.0, Anion Gap 5, BUN 7, Creatinine 0.82, Estim Creat Clear Calc 130.59, Est GFR (MDRD) Af Amer 127, Est GFR (MDRD) Non-Af 105, BUN/Creatinine Ratio 8.6 L, Glucose 105, Calcium 8.2 L, Phosphorus 2.3 L, Magnesium 1.9 07/20/23 06:31: WBC 6.5, RBC 3.96 L, Hgb 12.0 L, Hct 36.4 L, MCV 91.9, MCH 30.3, MCHC 33.0 D, RDW Std Deviation 49.1 H, RDW Coeff of Nuno 14.5, Plt Count 218, MPV 9.4, Immature Gran % (Auto) 0.500, Neut % (Auto) 68.5, Lymph % (Auto) 19.8, [place] % (Auto) 8.4, Eos % (Auto) 2.6, Baso % (Auto) 0.2, Absolute Neuts (auto) 4.4, Absolute Lymphs (auto) 1.28, Nucleated RBC % 0 Physical Exam Const oriented x3 and no apparent distress Resp Resp Narrative: Mildly tachypneic GI GI Narrative: Mildly distended and minimally tender to palpation. Operative dressings are removed apart from umbilical dressing which remains. Port sites remain appropriate. Assessment & Plan Assessment/Plan (1) Status post umbilical hernia repair, follow-up exam: PLAN: Patient is postoperative day 2 from hybrid approach to umbilical hernia repair with mesh placement. Overall he is stable but he does exhibit signs of a postoperative ileus. This was confirmed on x-ray this morning that shows evidence of dilated small bowel as well as colonic gas. Thus I have retracted his clear liquid diet and continued him on IV fluids only. I did replace his electrolytes as indicated by his morning labs. He is encouraged to ambulate and move is much as possible. Additionally, his Toradol remains scheduled to try to minimize his narcotic burden. Will continue to await signs of return of bowel function. Alexander Coats MD General Surgery Endocrine Surgery Pager: [facility] [address] [place] [address], [facility], [address] [place] [address] Office: [phone] Charges/Coding Visit Charges Inpatient E&M: 59992 Subs Hosp L2
[2023-07-20 08:14] LABS: Anion Gap 8 (5-15); BUN 10 mg/dL (7-18); BUN/Creat Ratio 16.6 RATIO (10-20); Calcium,Total 7.9 mg/dL (8.5-10.1); Chloride 106 mmol/L (98-107); EST Glomerular Filtration Rate 149 mL/min (>60); Est Glom Filt Rate - Afr Amer 180 mL/min (>60); Estimated Creatinine Clearance 178.47 ml/min; Glucose 95 mg/dL (74-106); Magnesium 1.9 mg/dL (1.6-2.6); Potassium 3.2 mmol/L (3.5-5.1); Sodium Level 136 mmol/L (136-145)
[2023-07-20 09:00] VITALS: BP 128/74; PULSE 98; RESP 20; TEMP 36.3; O2SAT 98
[2023-07-20] MEDS: Potassium Phosphate 15 MM in 0.9% Normal Saline (250mL Bag) 250 ML 125 MM IV (10:19)
[2023-07-20] MEDS: Potassium Chloride 10mEq/100mL 10 MEQ/100 ML IV.SOLN. 100 MEQ IV BOLUS ×4 (12:42→16:03)
[2023-07-20] MEDS: Pantoprazole Sodium 40 MG in 0.9% Normal Saline (100mL MB+) 100 ML 330 MG IV (15:02)
[2023-07-20 16:21] VITALS: BP 130/68; PULSE 95; RESP 18; TEMP 36.6; O2SAT 98
[2023-07-20] MEDS: Tamsulosin HCl 0.4 MG Capsule PO (16:24)
[2023-07-20] MEDS: HYDROmorphone 0.5 MG/0.5 ML SYRINGE IV (20:11)
[2023-07-20 20:49] VITALS: BP 140/77; PULSE 82; RESP 17; TEMP 36.6; O2SAT 97
[2023-07-20 21:34] VITALS: BP 129/64; PULSE 89; RESP 16; TEMP 36.7; O2SAT 98
[2023-07-21 03:30] VITALS: BP 133/74; PULSE 84; RESP 18; TEMP 36.5; O2SAT 94
[2023-07-21] MEDS: Ketorolac 30 MG/ML Syringe IV ×3 (05:14→17:26)
[2023-07-21] MEDS: 0.9% Normal Saline (1000mL) 1,000 ML 125 ML IV (05:14)
--- NOTE | 2023-07-21 06:41 | RAD_ITS ---
STUDY: X-RAY - ABDOMEN/PELVIS REASON FOR EXAM: Male, 53 years old. Ileus TECHNIQUE: Two AP supine views of the abdomen and pelvis. COMPARISON: 07/20/2023 FINDINGS: There are dilated loops of small bowel in the upper abdomen which are not significantly changed when compared with the prior exam. The visualized osseous structures are within normal limits. RAD/Abdomen Single View (Portable) IMPRESSION: Dilated loops of small bowel in the upper abdomen which are not significantly changed when compared with the prior exam. This may be due to ileus or obstruction. Electronically Signed: Daniel Barrios MD at 8:06 EDT ,
[2023-07-21 06:45] LABS: Absolute Lymphocyte Count 1.07 X10^3/uL (0.83-4.51); Absolute Neutrophil Count 3.9 X10^3/uL (2.0-7.7); Basophil# 0.01 X10^3/uL; Basophil% 0.2 % (0-1); Eosinophil# 0.14 X10^3/uL; Eosinophils% 2.5 % (0-5); Hematocrit 35.4 % (40-54); Hemoglobin 11.5 g/dL (13.0-16.5); Lymphocyte # 1.07 X10^3/ul (0.83-4.51); Lymphocyte % 19.4 % (19-41); Mean Corp Hgb Conc 32.5 g/dL (32-36); Mean Corpuscular Hgb 29.6 pg (27.0-32.0); Mean Platelet Vol. 9.4 fl (6.2-12.0); Monocyte# 0.35 X10^3/uL; Monocyte% 6.4 % (0-10); NRBC Flagged by Analyzer 0 % (0-5); Neutrophil # 3.91 X10^3/uL (2.7-7.7); Platelet Count 229 K/mm3 (150-450); RBC Distribution Width CV 13.9 % (11.6-14.6); RBC Distribution Width SD 46.2 fl (35.1-43.9); Red Blood Count 3.89 M/mm3 (4.6-6.2); White Blood Count 5.5 K/mm3 (4.4-11.0)
[2023-07-21 08:10] LABS: Anion Gap 13 (5-15); BUN 10 mg/dL (7-18); BUN/Creat Ratio 19.5 RATIO (10-20); Calcium,Total 8.1 mg/dL (8.5-10.1); Chloride 106 mmol/L (98-107); Creatinine, Serum 0.51 mg/dL (0.70-1.30); EST Glomerular Filtration Rate 180 mL/min (>60); Est Glom Filt Rate - Afr Amer 217 mL/min (>60); Estimated Creatinine Clearance 209.97 ml/min; Glucose 81 mg/dL (74-106); Magnesium 1.9 mg/dL (1.6-2.6); Phosphorus 1.9 mg/dL (2.5-4.9); Potassium 3.7 mmol/L (3.5-5.1); Sodium Level 135 mmol/L (136-145)
[2023-07-21 08:52] VITALS: BP 129/63; PULSE 82; RESP 18; TEMP 36.8; O2SAT 98
[2023-07-21] MEDS: Pantoprazole Sodium 40 MG in 0.9% Normal Saline (100mL MB+) 100 ML 330 MG IV (09:00)
--- NOTE | 2023-07-21 09:41 | PN.SURG_ITS ---
Subjective Subjective Patient reports he passed some gas overnight. He did have belching as well. He denies significant pain or nausea or vomiting. Objective Data Objective Data Vital Signs: Vital Signs Temp Pulse Resp BP Pulse Ox O2 Del Method O2 Flow Rate 98.3 F 82 18 129/63 H 98 Room Air 2 07/21/23 08:52 07/21/23 08:52 07/21/23 08:52 07/21/23 08:52 07/21/23 08:52 07/21/23 08:53 07/20/23 21:34 Oxygen Flow Rate (L/min) 2 Oxygen Delivery Method Room Air Weight: 239 lb 6.752 oz Body Mass Index (BMI) 33.3 Intake & Output: Intake and Output for Last 24 Hours 07/19/23 07/20/23 07/21/23 23:59 23:59 23:59 Intake Total 3491.25 / 3491.25 3586.67 / 3586.67 1418.33 / 1418.33 Output Total 1250 / 1250 700 / 700 1150 / 1150 Balance 2241.25 / 2241.25 2886.67 / 2886.67 268.33 / 268.33 Lab / Micro Data 07/21/23 06:23 07/21/23 06:23 Labs: Laboratory Results - last 24 hr 07/21/23 06:23: WBC 5.5, RBC 3.89 L, Hgb 11.5 L, Hct 35.4 L, MCV 91.0, MCH 29.6, MCHC 32.5, RDW Std Deviation 46.2 H, RDW Coeff of Nuno 13.9, Plt Count 229, MPV 9.4, Immature Gran % (Auto) 0.500, Neut % (Auto) 71.0 H, Lymph % (Auto) 19.4, [place] % (Auto) 6.4, Eos % (Auto) 2.5, Baso % (Auto) 0.2, Absolute Neuts (auto) 3.9, Absolute Lymphs (auto) 1.07, Nucleated RBC % 0, Sodium 135 L, Potassium 3.7, Chloride 106, Carbon Dioxide 16.0 L, Anion Gap 13, BUN 10, Creatinine 0.51 L, Estim Creat Clear Calc 209.97, Est GFR (MDRD) Af Amer 217, Est GFR (MDRD) Non-Af 180, BUN/Creatinine Ratio 19.5, Glucose 81, Calcium 8.1 L, Phosphorus 1.9 L, Magnesium 1.9 Radiography Diagnostic Testing: Radiology Impression KUB X-Ray 07/21/23 06:41 IMPRESSION: Dilated loops of small bowel in the upper abdomen which are not significantly changed when compared with the prior exam. This may be due to ileus or obstruction. Electronically Signed: Daniel Barrios MD at 8:06 EDT , Physical Exam Const oriented x3 and no apparent distress Resp normal respiratory effort GI soft to palpation and non-tender Inspection: abdominal distention Assessment & Plan Assessment/Plan (1) Umbilical hernia with obstruction: PLAN: The patient says he passed some flatus. I reviewed the KUB which showed less dilation than yesterday it seems. I will try clear liquids today. Tay Virgen MD Pager: [facility] [address] [place] [address], [address] [place] [address] Office:
[2023-07-21] MEDS: Potassium Phosphate 21 MM in 0.9% Normal Saline (250mL Bag) 250 ML 84 MM IV (10:19)
--- NOTE | 2023-07-21 11:28 | CASEMGMT ---
NITO PFEIFFER NOTE: NTIO CM to room. Pt resting in bed. He denies having any discharge needs/concerns, other than inquiring about when he will be able to go home. Pt currently on clear liquid diet and aware physicians are monitoring his intake and want to ensure he is tolerating diet/intake before discharging. Pt does not any contact's listed. He states okay to add his daughter, Manasa, to his contact list and states she can have information, if desired. He provided her contact info and this was put in [facility]. Zo RODRIGUEZN NITO PFEIFFER
[2023-07-21 14:32] VITALS: BP 140/82; PULSE 82; RESP 18; TEMP 36.6; O2SAT 99
[2023-07-21] MEDS: Tamsulosin HCl 0.4 MG Capsule PO ×2 (17:26)
[2023-07-21 18:57] VITALS: BP 159/97; PULSE 92; RESP 18; TEMP 36.9; O2SAT 98
--- NOTE | 2023-07-22 06:47 | DS.PCM_ITS ---
Providers Date of Admission: 07/18/23 Primary Care Physician: Dr. Elodia Vargas MD Reason For Visit: INCARCERATED UMBILICAL HERNIA Diagnosis Discharge Diagnosis (1) Umbilical hernia with obstruction: Status: Acute Code(s): K42.0 - Umbilical hernia with obstruction, without gangrene Plan: The patient says he passed some flatus. I reviewed the KUB which showed less dilation than yesterday it seems. I will try clear liquids today. Tay Virgen MD Pager: [facility] [address] [place] [address], [address] [place] [address] Office: Medications at Discharge Home Medications lisinopril 10 mg tablet 10 mg PO DAILY hypertension 07/18/23 omeprazole 20 mg capsule,delayed release 20 mg PO DAILY GERD 07/18/23 Hospital Course Summary of Care Provided Hospital Course: Patient was admitted with issues with his incarcerated ventral hernia. The following day he was taken for surgery and the hernia was repaired. Postoperatively he had a brief ileus and once he is tolerating diet he was discharged home Weight / BMI Weight Weight: 239 lb 6.752 oz Body Mass Index (BMI) 33.3 ABG / Lab / Microbiology Data 07/21/23 06:23 07/21/23 06:23 Laboratory: Laboratory Results - last 24 hr 07/21/23 06:23: Sodium 135 L, Potassium 3.7, Chloride 106, Carbon Dioxide 16.0 L , Anion Gap 13, BUN 10, Creatinine 0.51 L, Estim Creat Clear Calc 209.97, Est GFR (MDRD) Af Amer 217, Est GFR (MDRD) Non-Af 180, BUN/Creatinine Ratio 19.5, Glucose 81, Calcium 8.1 L, Phosphorus 1.9 L, Magnesium 1.9 Radiography Diagnostic Testing: Radiology Impression KUB X-Ray 07/21/23 06:41 IMPRESSION: Dilated loops of small bowel in the upper abdomen which are not significantly changed when compared with the prior exam. This may be due to ileus or obstruction. Electronically Signed: Daniel Barrios MD at 8:06 EDT , D/C Instructions Discharge Diet: No restrictions Ice area for (Minutes): 20 Call your doctor if your incision/area has: Continuous Slow Oozing, Increased Pain/ Swelling, Increased Redness, Foul Smelling Discharge and Swelling at the incision site Call your doctor if you observe: Fever of 101 or Higher, Inability to urinate and Inability to have a bowel movement Cleanse incision/area with: Soap & Water and Keep Dressing Clean & Dry Additional Dressing/Incision Instructions: Please leave Steri-Strips intact until they fall off spontaneously or are taken off at your follow-up visit Please Follow Up With: Alexander Coats MD When: 1 week postop Meaningful Use Info Meaningful Use Meaningful Use Diagnoses (Choose all that apply): None applicable Ischemic Stroke Statin Dosing Therapy Reference: STATIN DOSE THERAPY REFERENCE: * Patients > 75 years receive moderate or high dose statin therapy. * Patients 75 years or YOUNGER should receive HIGH intensity statin dose unless contraindicated. You will be required to document reason for non-treatment if statin daily dose does not meet guidelines. HIGH DOSE STATIN THERAPY DAILY Atorvastatin > than or = to 40 mg Rosuvastatin > than or = to 20 mg Amlodipine + Atorvastatin > than or = to 2.5/40 mg Ezetimibe + Simvastatin 10/80 mg Simvastatin 80mg Discharge Plan Admission Admit Date/Time: 07/18/23 00:51 Primary Reason for Your Visit: Umbilical hernia repair Attending Provider: Alexander Coats Primary Care Provider: Elodia Vargas Discharge Orders/Prescriptions Prescriptions: Continued lisinopril 10 mg tablet 10 mg PO DAILY omeprazole 20 mg capsule,delayed release(DR/EC) 20 mg PO DAILY Referrals / Follow Up: Elodia Vargas MD [Primary Care Provider] - Disposition Disposition (needs filled in before D/C Order can be placed): Home, Self Care
== END 2023-07-21 19:11 | disposition home or self-care (01) | DRG 228 ==
LOC: ED 23:48 → PCU 07-18 01:18 → MS3 07-19 19:01
PROVIDERS: Admitting Provider Surgery; Emergency Provider Emergency Medicine; PCP Internal Medicine; Visit Provider Surgery
PROC: 0WQF4ZZ Repair Abdominal Wall, Percutaneous Endoscopic Approach (ICD-10-PCS; principal; 2023-07-18 07:40)
DX: K42.0 Umbilical hernia with obstruction, without gangrene (principal); K56.7 Ileus, unspecified; I10 Essential (primary) hypertension; F17.210 Nicotine dependence, cigarettes, uncomplicated; K91.89 Other postprocedural complications and disorders of digestive system; K21.9 Gastro-esophageal reflux disease without esophagitis; K43.6 Other and unspecified ventral hernia with obstruction, without gangrene
CPT/HCPCS: 36415; 74018; 74177; 80048; 83605; 83735; 84100; 85025; 85610; 88302; 93005; 99283; 99406; J7030; J7050; J7120; Q9967; A4216; C1760; J2405; J3490